=== PATIENT | male | born 1945 | race Caucasian/White ===

== ENCOUNTER → 2019-08-28 08:18 | Outpatient (BNVA) | payer MEDICARE, OTHER, SELFPAY | PROVIDERS: Family Provider Family Medicine; PCP Internal Medicine; Visit Provider Internal Medicine | DX: B19.20 Unspecified viral hepatitis C without hepatic coma (principal); I10 Essential (primary) hypertension; R76.8 Other specified abnormal immunological findings in serum; M50.020 Cervical disc disorder with myelopathy, mid-cervical region, unspecified level; C61 Malignant neoplasm of prostate; Z86.19 Personal history of other infectious and parasitic diseases; Z79.899 Other long term (current) drug therapy; R53.83 Other fatigue; Z13.220 Encounter for screening for lipoid disorders; R89.9 Unspecified abnormal finding in specimens from other organs, systems and tissues; E78.2 Mixed hyperlipidemia; R79.89 Other specified abnormal findings of blood chemistry | CPT/HCPCS: 80053; 80061; 82105; 83036; 84443; 85025 ==

== ENCOUNTER 2019-09-07 06:42 | Outpatient (CLI) | payer MEDICARE, OTHER, SELFPAY ==
--- NOTE | 2019-09-07 07:15 | US_ITS ---
WS: [id number] Right upper quadrant ultrasound, 09/07/2019 Clinical Data: Hepatitis C Comparison: None. Findings: The gallbladder is absent. The common bile duct is 1.4 mm and there are no intrahepatic ductal abnormalities. Liver shows no cysts, masses or dilated intrahepatic ducts. The liver measures 16.78 cm. and there is fatty infiltration. The pancreas is obscured by overlying bowel gas but no cyst, pseudocyst, or evid ence of pancreatitis is noted. Right kidney measures 11.1 cm and no cyst, masses or hydronephrosis can be seen. The aorta and inferior vena cava show no vascular abnormalities. US/US liver [id number] Impression: 1. Absent gallbladder. 2. Fatty infiltration of the liver.
== END 2019-09-07 06:43 | disposition home or self-care (01) ==
LOC: RAD 06:46
PROVIDERS: Family Provider Family Medicine; PCP Internal Medicine; Visit Provider Internal Medicine
DX: K76.0 Fatty (change of) liver, not elsewhere classified (principal); R76.8 Other specified abnormal immunological findings in serum; Z86.19 Personal history of other infectious and parasitic diseases; Z90.49 Acquired absence of other specified parts of digestive tract
CPT/HCPCS: 76705

== ENCOUNTER → 2019-12-20 14:00 | Outpatient (BNVA) | payer MEDICARE, OTHER, SELFPAY | PROVIDERS: Family Provider Family Medicine; PCP Internal Medicine; Visit Provider Nurse Practitioner Family | DX: R50.9 Fever, unspecified (principal); J02.9 Acute pharyngitis, unspecified; R05 Cough; R53.81 Other malaise; R53.83 Other fatigue; Z20.828 Contact with and (suspected) exposure to other viral communicable diseases | CPT/HCPCS: 87400; 87635 ==

== ENCOUNTER 2020-09-18 10:12 | Outpatient (CLI) | payer MEDICARE, OTHER, SELFPAY ==
--- NOTE | 2020-09-18 10:23 | XR_ITS ---
WS: [id number] DEXA (DUAL ENERGY X-RAY ABSORPTIOMETRY) Bone mineral density was performed using a Deeplink machine. HISTORY: PROSTATE CANCER COMPARISON: None available. Lumbar spine BMD (L1-L4): 1.249 g/cm2 T score: 0.2 Z score: 0.4 Total hip BMD: Left: 0.988 g/cm2. T score: -0.8 Z score: -0.1 Right: 0.945 g/cm2. T score: -1.1 Z score: -0.4 10 year probability of a major osteoporotic fracture is 6%. XR/XR DEXA axial skeleton* [id number] IMPRESSION: OSTEOPENIA.
== END 2020-09-18 10:13 | disposition home or self-care (01) ==
PROVIDERS: PCP Internal Medicine; Visit Provider Internal Medicine Hematology & Oncology
DX: C61 Malignant neoplasm of prostate (principal); M85.88 Other specified disorders of bone density and structure, other site
CPT/HCPCS: 77080

== ENCOUNTER → 2021-02-03 15:20 | Outpatient (BNVA) | payer MEDICARE, OTHER, SELFPAY | PROVIDERS: PCP Internal Medicine; Visit Provider Nurse Practitioner Family | DX: J06.9 Acute upper respiratory infection, unspecified (principal); Z20.822 Contact with and (suspected) exposure to COVID-19 | CPT/HCPCS: 87426 ==

== ENCOUNTER 2021-02-07 05:10 | Outpatient (CLI) | payer MEDICARE, OTHER, SELFPAY ==
[2021-02-07 06:32] VITALS: BP 133/78; PULSE 60; RESP 17; TEMP 37.1; O2SAT 95; BMI 29.5
--- NOTE | 2021-02-07 06:33 | AMB.MCA ---
Patient Information Symptom onset date: 01/29/21 COVID 19 common symptoms: positive fever(s), chills, cough, non-productive cough, dyspnea, fatigue, body aches, headache(s) and nasal congestion COVID 19 other sytmptoms: negative requiring oxygen Severity: mild Treatment prior to arrival: none Other details: 35-year-old male tested positive for Covid on 727 symptoms onset prior to that 4 to 5 days. Patient wishes to have monoclonal antibodies reviewed risk benefits and alternatives he wishes to proceed [facility] COVID test results: SARS-CoV-2 Antigen (Rapid) Positive (Negative) H 02/03/21 15:20 02/03/21 SARS-CoV-2 RNA (RT-PCR) Not detected (NOT DETECTED) 12/20/19 14:00 12/20/19 Criteria/Plan Inclusion/Exclusion Criteria weight >/= 40kg, + direct test </= 10 days ago and symptom onset </= 10 days ago age >/= 65 not requiring hospitalization, not requiring oxygen (if not chronically on oxygen) and no increase oxygen requirement (if chronically on oxygen) Patient education patient/family/caregiver received/reviewed fact sheet, Emergency Use Authorization/unapproved drug status discussed with patient/family/caregiver, alternatives to this treatment discussed with patient/family/caregiver, risks and benefits of medication reviewed with patient/family/caregiver, patient/family/caregiver given opportunity for questions, which were answered and patient consents to receiving Monoclonal Antibody Treatment Plan for treatment Meets criteria for Monoclonal Antibody infusion Ordering Monoclonal Antibody infusion for today
[2021-02-07 09:05] VITALS: BP 151/77; PULSE 64; RESP 17; TEMP 36.6; O2SAT 95
--- NOTE | 2021-02-12 13:28 | DCPLANNER ---
tool and die manager had message that patient received the monoclonal antibody infusion. tool and die manager called to check on patient after receiving the infusion. tool and die manager spoke with patient, he stated that before the infusion he did run a slight fever, he had a cough, he did not have a headache, but he did have body aches. Patient stated that after the infusion he has not had a fever, but he has had a slight cough. Patient stated that he is feeling much better.
== END 2021-02-07 05:11 | disposition home or self-care (01) ==
PROVIDERS: PCP Internal Medicine; Visit Provider Nurse Practitioner Family
DX: U07.1 COVID-19 (principal)
CPT/HCPCS: 96365

== ENCOUNTER 2021-02-20 06:58 | Outpatient (CLI) | payer MEDICARE, OTHER, SELFPAY ==
--- NOTE | 2021-02-20 | USCV_ITS ---
Sam Vazquez Age: 75 Gender: M : 1945 Exam Date: 02/20/2021 07:16 Ordering Phys: Andrea Daugherty MD Technologist: SHY Exam Location: [facility] [place] Indication: I/O ASD REPAIR 1964 BP: 140 / 60 HR: 55 Rhythm: Sinus Technical Quality: Adequate MEASUREMENTS (Male / Female) Normal Values 2D ECHO LV Diastolic Diameter PLAX 4.2 cm 4.2 - 5.9 / 3.9 - 5.3 cm LV Systolic Diameter PLAX 3.0 cm IVS Diastolic Thickness 1.5 cm 0.6 - 1.0 / 0.6 - 0.9 cm IVS Systolic Thickness 1.8 cm LVPW Diastolic Thickness 1.3 cm 0.6 - 1.0 / 0.6 - 0.9 cm LVPW Systolic Thickness 1.4 cm LVOT Diameter 2.0 cm LV Ejection Fraction 2D Teich 55.7 % LV Ejection Fraction MOD 2C 54.3 % LV Ejection Fraction 2C AL 53.5 % LA Diameter 3.4 cm LA Width 3.6 cm LA Height 4.8 cm RA Width 3.3 cm RA Height 4.2 cm Aorta at Sinotubular Diameter 3.4 cm M-MODE Aortic Annulus Diameter 4.2 cm LA Ao Ratio MM 0.9 MV E Point Septal Separation 0.5 cm DOPPLER AV Peak Velocity 126.0 cm/s LVOT Peak Velocity 87.0 cm/s AV Area Cont Eq vti 2.2 cm squared AV Area Cont Eq pk 2.2 cm squared MV Peak Velocity 84.0 cm/s MV Area PHT 5.0 cm squared Mitral E to A Ratio 0.8 MV E' Velocity 33.0 cm/s Mitral E to MV E' Ratio 7.0 Mitral E to LV E' Lateral Ratio 6.9 Mitral E to LV E' Septal Ratio 7.1 TR Peak Velocity 231.5 cm/s TR Peak Gradient 21.4 mmHg TR Mean Velocity 182.0 cm/s TR Mean Gradient 15.0 mmHg TR Velocity Time Integral 63.7 cm TV Peak E Velocity 37.0 cm/s Right Atrial Pressure 3.0 mmHg Pulmonary Artery Systolic Pressu 24.4 mmHg PV Peak Velocity 127.0 cm/s RV Acceleration Time 0.1 s RV Ejection Time 0.3 s RV AcT/ET 0.4 FINDINGS Left Ventricle Normal left ventricular size and systolic function, EF 60% (visual). No regional wall motion abnormalities. Grade I/IV diastolic dysfunction (abnormal relaxation filling pattern), normal to mildly elevated filling pressures. Right Ventricle The right ventricle is normal in size and function. Right Atrium The right atrium is normal in size. Left Atrium Mildly increased left atrial size. Interatrial septum was not visualized well. No evidence of any inter atrial shunt, based on the color flow Doppler examination Mitral Valve Thickened mitral valve. Aortic Valve Thickened aortic valve. Tricuspid Valve No gross abnormalities noted Pulmonic Valve Pulmonic valve not well visualized. Pericardium Normal pericardium without effusion. Aorta Normal ascending aorta dimension. CONCLUSIONS Normal left ventricular size and systolic function, EF 60% (visual). No regional wall motion abnormalities. Grade I/IV diastolic dysfunction (abnormal relaxation filling pattern), normal to mildly elevated filling pressures. Mildly increased left atrial size. Interatrial septum was not visualized well. No evidence of any inter atrial shunt, based on the color flow Doppler examination. Minimally thickened aortic and mitral valves. There is no pericardial effusion. Technically difficult study because of the poor ultrasonic window. No previous study is available for comparison. Dr Tima Dawn MD FACC (Electronically Signed) Final Date: 20 February 2021 15:12 S
== END 2021-02-20 06:59 | disposition home or self-care (01) ==
LOC: US 07:02
PROVIDERS: PCP Internal Medicine; Visit Provider Internal Medicine Cardiovascular Disease
DX: I35.1 Nonrheumatic aortic (valve) insufficiency (principal); I34.0 Nonrheumatic mitral (valve) insufficiency; I07.1 Rheumatic tricuspid insufficiency
CPT/HCPCS: 93306

== ENCOUNTER → 2021-04-02 15:49 | Outpatient (BNVA) | payer MEDICARE, OTHER, SELFPAY | PROVIDERS: PCP Internal Medicine; Visit Provider Internal Medicine | DX: K75.81 Nonalcoholic steatohepatitis (NASH) (principal); I10 Essential (primary) hypertension; C61 Malignant neoplasm of prostate; Z86.19 Personal history of other infectious and parasitic diseases; Z23 Encounter for immunization | CPT/HCPCS: 80053; 80061; 82105; 84443 ==

== ENCOUNTER → 2023-01-04 15:22 | Outpatient (BNVA) | payer MEDICARE, OTHER, SELFPAY | PROVIDERS: PCP Internal Medicine; Visit Provider Dermatology | DX: L57.0 Actinic keratosis (principal); L82.1 Other seborrheic keratosis; L72.11 Pilar cyst; L40.0 Psoriasis vulgaris; L82.0 Inflamed seborrheic keratosis; L91.8 Other hypertrophic disorders of the skin | CPT/HCPCS: 17000; 17003; 17110; 99213 ==

== ENCOUNTER → 2024-01-05 09:17 | Outpatient (BNVA) | payer MEDICARE, OTHER, SELFPAY | PROVIDERS: PCP Internal Medicine; Visit Provider Nurse Practitioner Family | DX: L57.0 Actinic keratosis (principal); L40.0 Psoriasis vulgaris; D22.5 Melanocytic nevi of trunk; L57.8 Other skin changes due to chronic exposure to nonionizing radiation; L82.0 Inflamed seborrheic keratosis | CPT/HCPCS: 17000; 17110; 99214 ==

== ENCOUNTER → 2025-03-14 09:27 | Outpatient (BNVA) | payer MEDICARE, OTHER, SELFPAY | PROVIDERS: PCP Internal Medicine; Visit Provider Dermatology | DX: L21.8 Other seborrheic dermatitis (principal); L57.8 Other skin changes due to chronic exposure to nonionizing radiation; L82.1 Other seborrheic keratosis; L72.0 Epidermal cyst; L82.0 Inflamed seborrheic keratosis; R20.8 Other disturbances of skin sensation; L29.89 Other pruritus; L53.8 Other specified erythematous conditions; D48.5 Neoplasm of uncertain behavior of skin; L57.0 Actinic keratosis | CPT/HCPCS: 11102; 17000; 17110; 99214 ==